=== PATIENT | female | born 1975 | race Caucasian/White ===

== ENCOUNTER → 2018-03-23 | Outpatient (CLI) | payer OTHER | LOC: CIMAGING 15:11 | PROVIDERS: ATTEND Emergency Medicine | DX: M54.2 Cervicalgia (principal) | CPT/HCPCS: 72050-PO ==

== ENCOUNTER → 2018-08-03 | Outpatient (CLI) | payer OTHER ==
[~2018-08-03] MED LIST: IOPAMIDOL (ISOVUE-300) 100 ML BTL ONE
== END ==
LOC: FIMAGING 12:07
PROVIDERS: ATTEND Family Medicine
DX: K59.00 Constipation, unspecified (principal); N20.0 Calculus of kidney; N83.201 Unspecified ovarian cyst, right side
CPT/HCPCS: Q9967